=== PATIENT | male | born 1960 | race African-American/Black ===

== ENCOUNTER 2016-11-02 22:47 | Emergency (ER) | payer SELFPAY ==
[2016-11-02 22:53] VITALS: BMI 22.4
[2016-11-03] MEDS ORDERED: cloNIDine HCL 0.1 MG TABLET PO ONE (00:04)
[2016-11-03] MEDS ORDERED: KETOROLAC TROMETHAMINE 60 MG/2 ML VIAL IM ONE (00:07)
[2016-11-03] MEDS ORDERED: HYDROCHLOROTHIAZIDE 25 MG TABLET (FP) PO ONE (00:10)
[2016-11-03] MEDS ORDERED: OXYCODONE/APAP 5/325MG COMBO TABLET PO ONE (00:10)
--- NOTE | 2016-11-03 00:10 | PDOC ---
History of Present Illness - History of Present Illness Initial Comments: 11/03/16 00:35 Patient is a 55 year old male with significant medical hx of total knee replacements x 4 (most recent: right knee, 06/03/16), anxiety, HTN, spinal stenosis and migraines who is presenting to the ED for bilateral hip pain for the past week. The patient was recently diagnosed with degenerative arthritis to his hips bilaterally one week ago after receiving an x-ray. He complains of hip pain with radiation down his legs that is worse on the right side. The patient states it hurts with movement, positional change, and when he lies down. He also endorses headache and elevated blood pressure. The patient states that he does physical therapy twice a week for his knee surgeries and he was asked to take this week off for hip pain. The patient ambulates with a cane and a walker. Denies numbness, tingling, weakness, difficulty urinating, incontinence, or new focal neurological deficits. Orthopedic Surgeon: Dylan Steiner MD <Sully Madrid - Last Filed: 11/03/16 00:35> <Sally Hameed - Last Filed: 11/03/16 04:14> - General Chief Complaint: Pain, Acute Stated Complaint: PAIN Time Seen by Provider: 11/02/16 23:15 Past History <Sully Madrid - Last Filed: 11/03/16 00:35> - Past Medical History Anemia: No Asthma: No Cancer: No Cardiac Disorders: No CVA: No COPD: No CHF: No Dementia: No Diabetes: No GI Disorders: No Disorders: No HTN: Yes Hypercholesterolemia: No Kidney Stones: No Liver Disease: No Psychiatric Problems: Yes (anxiety) Suicide Attempt (Hx): No Seizures: No Thyroid Disease: No - Surgical History Abdominal Surgery: No Appendectomy: No Cardiac Surgery: No Cholecystectomy: No Lung Surgery: No Neurologic Surgery: Yes (Spinal Fusion X2) Orthopedic Surgery: Yes (spinal fusion last 9 years ago) - Reproductive History Testicular Surgery: No - Immunization History Immunization Up to Date: No - Psycho/Social/Smoking Cessation Hx Anxiety: Yes Suicidal Ideation: No Smoking Status: No Smoking History: Never smoked Years of Tobacco Use: 3 Have you smoked in the past 12 months: Yes Number of Cigarettes Smoked Daily: 2 Cigars Per Day: 1 'Breaking Loose' booklet given: 05/16/14 Hx Alcohol Use: No Drug/Substance Use Hx: No Substance Use Type: None Hx Substance Use Treatment: Yes (percocet and valium) <Sally Hameed - Last Filed: 11/03/16 04:14> - Past Medical History Allergies/Adverse Reactions: Allergies Allergy/AdvReac Type Severity Reaction Status Date / Time No Known Allergies Allergy Verified 11/02/16 22:50 Home Medications: Ambulatory Orders Amlodipine Bes/Olmesartan Med [Ruben 10-40 mg Tablet] 1 each PO DAILY 11/29/13 Diazepam [Valium -] 10 mg PO BID PRN #60 tablet 05/28/14 Propranolol HCl [Inderal LA -] 80 mg PO DAILY #60 capsule.er 05/28/14 Cyclobenzaprine HCl [Amrix] 15 mg PO DAILY 11/03/14 Quetiapine Fumarate "Xr" [Seroquel XR] 200 mg PO HS@2000 11/03/14 Tamsulosin HCl [Flomax] 0.4 mg PO DAILY 11/03/14 Review of Systems - Review of Systems Comments:: 11/03/16 00:35 CONSTITUTIONAL: Absent: fever, chills, diaphoresis, generalized weakness, malaise, loss of appetite HEENT: Absent: rhinorrhea, nasal congestion, throat pain, throat swelling, difficulty swallowing, mouth swelling, ear pain, eye pain, visual changes CARDIOVASCULAR: Present: high blood pressure Absent: chest pain, syncope, palpitations, irregular heart rate, lightheadedness , peripheral edema RESPIRATORY: Absent: cough, shortness of breath, dyspnea with exertion, orthopnea, wheezing, stridor, hemoptysis GASTROINTESTINAL: Absent: abdominal pain, abdominal distension, nausea, vomiting, diarrhea, constipation, melena, hematochezia GENITOURINARY: Absent: dysuria, frequency, urgency, hesitancy, hematuria, flank pain, genital pain MUSCULOSKELETAL: Present: bilateral hip pain Absent: myalgia, joint swelling SKIN: Absent: rash, itching, pallor HEMATOLOGIC/IMMUNOLOGIC: Absent: easy bleeding, easy bruising, lymphadenopathy, frequent infections ENDOCRINE: Absent: unexplained weight gain, unexplained weight loss, heat intolerance, cold intolerance NEUROLOGIC: Present: headache Absent: focal weakness or paresthesia, dizziness, unsteady gait, seizure, mental status changes, bladder or bowel incontinence. PSYCHIATRIC: Absent: anxiety, depression, suicidal or homicidal ideation, hallucinations <Sully Madrid - Last Filed: 11/03/16 00:35> *Physical Exam - Vital Signs Last Vital Signs Temp Pulse Resp BP Pulse Ox 98.4 F 66 18 161/123 99 11/02/16 22:50 11/02/16 22:50 11/02/16 22:50 11/02/16 22:50 11/02/16 22:50 - Physical Exam Comments: 11/03/16 00:36 GENERAL: Well-appearing, well-nourished. No apparent distress. HEENT: Normocephalic, atraumatic. PERRL, EOM intact. CARDIOVASCULAR: Normal S1, S2. Regular rate and rhythm. PULMONARY: Clear to auscultation bilaterally. ABDOMEN: Soft, non-distended, non-tender. EXTREMITIES: Normal ROM in upper extremities. Decreased ROM lower extremities due to pain. No gross deformities. SKIN: Warm, dry. No rash NEUROLOGICAL: No focal neurological deficits. <Sully Madrid - Last Filed: 11/03/16 00:35> - Vital Signs Last Vital Signs Temp Pulse Resp BP Pulse Ox 98.4 F 66 18 161/123 99 11/02/16 22:50 11/02/16 22:50 11/02/16 22:50 11/02/16 22:50 11/02/16 22:50 <Sally Hameed - Last Filed: 11/03/16 04:14> Medical Decision Making - Medical Decision Making 11/03/16 04:09 bp came down to 140/90 headache resolved pt will call his regular physician for pain meds <Sally Hameed - Last Filed: 11/03/16 04:14> *DC/Admit/Observation/Transfer - Attestations Scribe Attestion: 11/03/16 00:37 Documentation prepared by Sully Madrid, acting as biomedical scientist for Sally Hameed MD. <Sully Madrid - Last Filed: 11/03/16 00:35> <Sally Hameed - Last Filed: 11/03/16 04:14> Diagnosis at time of Disposition: High blood pressure Qualifiers: Hypertension type: essential hypertension Qualified Code(s): I10 - Essential ( primary) hypertension Chronic pain Qualifiers: Chronic pain type: chronic pain syndrome Qualified Code(s): G89.4 - Chronic pain syndrome - Discharge Dispostion Disposition: HOME Condition at time of disposition: Stable - Referrals Referrals: Jeni Aguirre MD [Primary Care Provider] - - Patient Instructions Additional Instructions: please see your regular physician this week
[2016-11-03] MEDS ORDERED: HYDROCHLOROTHIAZIDE 25 MG TABLET (FP) ONE (00:32)
[2016-11-03] MEDS ORDERED: OXYCODONE/APAP 5/325MG COMBO TABLET ONE (00:32)
[2016-11-03] MEDS ORDERED: cloNIDine HCL 0.1 MG TABLET ONE (00:33)
[2016-11-03] MEDS ORDERED: KETOROLAC TROMETHAMINE 60 MG/2 ML VIAL ONE (00:33)
[2016-11-03] MEDS ORDERED: LABETALOL HCL 100 MG TABLET (FP) PO ONE (02:11)
[2016-11-03] MEDS ORDERED: LABETALOL HCL 100 MG TABLET (FP) ONE (02:19)
[2016-11-03 04:10] VITALS: BP 148/93; PULSE 60; TEMP 98.2
== END 2016-11-03 04:26 | disposition home or self-care (01) ==
LOC: JER 22:47
PROC: 3E0233Z Introduction of Anti-inflammatory into Muscle, Percutaneous Approach (ICD-10-PCS; principal; 2016-11-02)
DX: I10 Essential (primary) hypertension (principal); M16.0 Bilateral primary osteoarthritis of hip; G89.4 Chronic pain syndrome; F41.9 Anxiety disorder, unspecified; G43.909 Migraine, unspecified, not intractable, without status migrainosus; M48.00 Spinal stenosis, site unspecified
CPT/HCPCS: 99282-25

== ENCOUNTER 2017-01-02 18:58 | Emergency (ER) | payer OTHER ==
[2017-01-02] MEDS ORDERED: METOCLOPRAMIDE HCL INJECTION 10 MG/2 ML VIAL IVPB ONE (20:17)
[2017-01-02] MEDS ORDERED: SODIUM CHLORIDE 0.9% 1000 ML INFUS.BAG IV ONE (20:17)
[2017-01-02 20:29] VITALS: PULSE 95; TEMP 98.2; BMI 35.2
[2017-01-02 20:37] LABS: MCH 27.7 pg (25.7-33.7); MCHC 33.1 g/dl (32.0-35.9); MEAN CELL VOLUME 83.8 fl (80-96); MEAN PLT VOLUME 10.7 fl (7.5-11.1); PLATELET COUNT 206 K/MM3 (134-434); WHITE BLOOD COUNT 5.4 K/mm3 (4.0-10.8)
[2017-01-02 20:42] LABS: ALBUMIN 3.8 g/dl (3.5-5.0); ALK PHOS 90 U/L (32-92); ANION GAP 8 (8-16); CALCIUM 9.4 mg/dl (8.4-10.2); CO2 26 mmol/L (22-28); CREATININE 1.1 mg/dl (0.6-1.3); GLUCOSE,RANDOM 99 mg/dl (74-106); SGOT/AST 14 U/L (10-42); SGPT/ALT 22 U/L (10-40); TOT PROT 6.6 g/dl (6.4-8.3)
--- NOTE | 2017-01-02 20:56 | PDOC ---
History of Present Illness - General History Source: Patient Exam Limitations: No Limitations - History of Present Illness Initial Comments: 01/02/17 20:58 The patient is a 56 year old male, with a significant past medical history of hypertension, anxiety, migraines, who presents to the emergency department with complaints of a headache for one month. He reports that the headache has gotten increasingly worse since Tuesday and is now constant. The patient states that his headache starts in his neck and radiates up to his head and jaw. He reports some associated light sensitivity and tingling in his fingers and arms. The patient states that he has had chronic knee pain status post 4 total knee replacements and he does see a pain management doctor. He has some weakness in his right leg resulting from his previous knee surgery. He also has neck pain following cervical spine surgery many years ago. He reports some nausea while present in the ED and a few episodes of vomiting yesterday The patient states that he has had these headache in the past but has never seen a Neurologist. He is unsure if he ever had imaging of his brain. He denies weakness or recent injury or trauma. He denies chest pain, shortness of breath, and dizziness. He denies fever, chills, diarrhea and constipation. Allergies: None Past surgical history: Total knee replacement, spinal fusion Social history:Previous tobacco use PCP: Dr. Jeni De Leon Orthopedic Surgeon: Dr. Dylan Steiner <Marina Mello - Last Filed: 01/02/17 20:58> - General History Source: Patient Exam Limitations: No Limitations <Judith Gary - Last Filed: 01/02/17 22:09> - General Chief Complaint: Blood Pressure Problem Stated Complaint: HIGH BLOOD PRESSURE Past History <Marina Mello - Last Filed: 01/02/17 20:58> - Past Medical History Anemia: No Asthma: No Cancer: No Cardiac Disorders: No CVA: No COPD: No CHF: No Dementia: No Diabetes: No GI Disorders: No Disorders: No HTN: Yes Hypercholesterolemia: No Kidney Stones: No Liver Disease: No Psychiatric Problems: Yes (anxiety) Suicide Attempt (Hx): No Seizures: No Thyroid Disease: No - Surgical History Abdominal Surgery: No Appendectomy: No Cardiac Surgery: No Cholecystectomy: No Lung Surgery: No Neurologic Surgery: Yes (Spinal Fusion X2) Orthopedic Surgery: Yes (spinal fusion last 9 years ago) - Reproductive History Testicular Surgery: No - Immunization History Immunization Up to Date: No - Psycho/Social/Smoking Cessation Hx Anxiety: Yes Suicidal Ideation: No Smoking Status: No Smoking History: Never smoked Years of Tobacco Use: 3 Have you smoked in the past 12 months: Yes Number of Cigarettes Smoked Daily: 2 Cigars Per Day: 1 Information on smoking cessation initiated: No 'Breaking Loose' booklet given: 05/16/14 Hx Alcohol Use: No Drug/Substance Use Hx: No Substance Use Type: None Hx Substance Use Treatment: Yes (percocet and valium) <Judith Gary - Last Filed: 01/02/17 22:09> - Past Medical History Allergies/Adverse Reactions: Allergies Allergy/AdvReac Type Severity Reaction Status Date / Time No Known Allergies Allergy Verified 11/02/16 22:50 Home Medications: Ambulatory Orders Amlodipine Besylate/Benazepril [Lotrel 5-40 mg Capsule] 1 each PO DAILY Diazepam [Valium] 10 mg PO BID 01/02/17 Morphine Sulfate 30 mg PO BID 01/02/17 Verapamil HCl [Calan Sr] 180 mg PO DAILY 01/02/17 Review of Systems - Review of Systems Able to Perform ROS?: Yes Comments:: 01/02/17 20:59 GENERAL/CONSTITUTIONAL: No fever or chills. No weakness. HEAD, EYES, EARS, NOSE AND THROAT: No change in vision. No ear pain or discharge. No sore throat. GASTROINTESTINAL: +Nausea, +Vomiting diarrhea or constipation. GENITOURINARY: No dysuria, frequency, or change in urination. CARDIOVASCULAR: No chest pain or shortness of breath. RESPIRATORY: No cough, wheezing, or hemoptysis. MUSCULOSKELETAL: +Knee pain, +Neck pain SKIN: No rash NEUROLOGIC: +Headache, +Sensitivity to light, +Tingling in fingers and arms vertigo, loss of consciousness, or change in strength/sensation. ENDOCRINE: No increased thirst. No abnormal weight change. HEMATOLOGIC/LYMPHATIC: No anemia, easy bleeding, or history of blood clots. ALLERGIC/IMMUNOLOGIC: No hives or skin allergy. <Marina Mello - Last Filed: 01/02/17 20:58> *Physical Exam - Vital Signs Last Vital Signs Temp Pulse Resp BP Pulse Ox 98.2 F 95 H 18 145/95 98 07/30/17 20:19 01/02/17 20:19 01/02/17 20:19 01/02/17 20:19 01/02/17 20:19 - Physical Exam Comments: 01/02/17 20:59 GENERAL: Awake, alert, and fully oriented, in no acute distress HEAD: No signs of trauma EYES: PERRLA, EOMI, sclera anicteric, conjunctiva clear ENT: Auricles normal inspection, nares patent, Moist mucosa NECK: Normal ROM, supple, no lymphadenopathy, JVD, or masses LUNGS: Breath sounds equal, clear to auscultation bilaterally. No wheezes, and no crackles HEART: Regular rate and rhythm, normal S1 and S2, no murmurs, rubs or gallops ABDOMEN: Soft, nontender, normoactive bowel sounds. No guarding, no rebound. No masses EXTREMITIES: Normal range of motion, no edema. No clubbing or cyanosis. No cords, erythema, or tenderness NEUROLOGICAL: 5/5 strength in upper extremities, 5/5 strength in lower left extremity, in the lower right extremity 4/5 strength (old). Sensation is intact throughout SKIN: Warm, Dry, normal turgor, no rashes or lesions noted. <Marina Mello - Last Filed: 01/02/17 20:58> - Vital Signs Last Vital Signs Temp Pulse Resp BP Pulse Ox 98.2 F 95 H 18 145/95 98 01/02/17 20:19 01/02/17 20:19 01/02/17 20:19 01/02/17 20:19 01/02/17 20:19 <Judith Gary - Last Filed: 01/02/17 22:09> Heart Score/ECG Review #1 General ECG Interpretation: Sinus Rhythm, Normal Rate (62), Normal Intervals, No acute ischemic changes <Judith Gary - Last Filed: 01/02/17 22:09> ED Treatment Course - LABORATORY CBC & Chemistry Diagram: 01/02/17 20:15 01/02/17 20:15 - ADDITIONAL ORDERS Additional order review: Laboratory Results 01/02/17 20:15 Sodium 140 Potassium 3.6 Chloride 106 Carbon Dioxide 26 Anion Gap 8 BUN 17 Creatinine 1.1 Creat Clearance w eGFR > 60 Random Glucose 99 Calcium 9.4 AST 14 ALT 22 Alkaline Phosphatase 90 Total Protein 6.6 Albumin 3.8 01/02/17 20:15 RBC 4.80 MCV 83.8 MCHC 33.1 RDW 15.0 MPV 10.7 Neutrophils % Y Lymphocytes % Y - Medications Given in the ED: ED Medications Discontinued Medications Generic Name Dose Route Start Last Admin Trade Name Nallely PRN Reason Stop Dose Admin Diphenhydramine HCl 25 mg 01/02/17 20:27 01/02/17 20:29 Benadryl Injection - IVPB 01/02/17 20:28 25 mg NOW ONE Administration Metoclopramide HCl 10 mg 01/02/17 20:17 01/02/17 20:26 Reglan Injection - IVPB 01/02/17 20:18 10 mg ONCE ONE Administration Sodium Chloride 1,000 ml 01/02/17 20:17 01/02/17 20:26 Normal Saline - IV 01/02/17 20:18 1,000 ml ONCE ONE Administration <Marina Mello - Last Filed: 01/02/17 20:58> - LABORATORY CBC & Chemistry Diagram: 01/02/17 20:15 01/02/17 20:15 - ADDITIONAL ORDERS Additional order review: Laboratory Results 01/02/17 20:15 Sodium 140 Potassium 3.6 Chloride 106 Carbon Dioxide 26 Anion Gap 8 BUN 17 Creatinine 1.1 Creat Clearance w eGFR > 60 Random Glucose 99 Calcium 9.4 AST 14 ALT 22 Alkaline Phosphatase 90 Total Protein 6.6 Albumin 3.8 - RADIOLOGY Radiology Studies Ordered: Category Date Time Status HEAD CT WITHOUT CONTRAST [CT] Stat CT Scan 01/02/17 20:26 Taken - Medications Given in the ED: ED Medications Discontinued Medications Generic Name Dose Route Start Last Admin Trade Name Nallely PRN Reason Stop Dose Admin Diphenhydramine HCl 25 mg 01/02/17 20:27 01/02/17 20:29 Benadryl Injection - IVPB 01/02/17 20:28 25 mg NOW ONE Administration Metoclopramide HCl 10 mg 01/02/17 20:17 01/02/17 20:26 Reglan Injection - IVPB 01/02/17 20:18 10 mg ONCE ONE Administration Sodium Chloride 1,000 ml 01/02/17 20:17 01/02/17 20:26 Normal Saline - IV 01/02/17 20:18 1,000 ml ONCE ONE Administration <Judith Gary - Last Filed: 01/02/17 22:09> Medical Decision Making - Medical Decision Making 01/02/17 20:51 56 yo M with c/o spinal surgery multiple knee surgeries and h/o migraines here wtih c/o one month of headache. severely worse and persistant since tuesday. takes medication for his knee which is prescribed by his pain management doctor which has not helped. also c/o neck pain radiating to head, and throat up to his eyes . no f/c no trauma. no weakness. does sometimes get paresthesia in his fingers which he has had for a while. has chronic right leg weakness followig his knee surgery. does have nausea, and vomiting yesterday. on exam awake alert lungs clear. hear rrr no mrg. abd soft NT skin warm and dry. nuero awake alert x 3 . strenth 5/5 bilat upper ext, left lower ext. right lower ext 4/5 ( old ) sensation intact throught. differential: pt states has not ihad imaging. will ct head r/o organic cuase. likley tension headache vs. migraine. plan reglan, ivf benadryl. toradol. consider valium po. reassess. labs r/o anemia, sx of infection and baseline renal function. 01/02/17 22:08 pt labs unremarkable. head ct normal. feeling improved with tylenol, toradol and reglan. given referral for nuerology and asked to follow up with pcp regarding bp meds, and pain management for further pain control. <Judith Gary - Last Filed: 01/02/17 22:09> *DC/Admit/Observation/Transfer - Attestations Scribe Attestion: 01/02/17 20:59 Documentation prepared by MAURICIO Matias, acting as medical fee clerk for Judith Gary MD. <Marina Mello - Last Filed: 01/02/17 20:58> <Judith Gary - Last Filed: 01/02/17 22:09> Diagnosis at time of Disposition: Head ache - Discharge Dispostion Condition at time of disposition: Good - Referrals Referrals: Jeni Aguirre MD [Primary Care Provider] - Khanh Perez MD [Staff Physician] - - Patient Instructions Printed Discharge Instructions: Migraine Headaches (Alternative Therapy), Migraine -- Adult Additional Instructions: you should follow up with a nuerologist for persistant headaches. in addition you should follow up with your pain management doctor. return for persistant vomiting, worsenign weakness, or any concerns. you can take ibuprofen 400 mg every 8 hours with food in addition to your pain managemnet regimen for persistant or recurrent symtpoms. your head CT Scan was normal.
[2017-01-02 20:58] LABS: BILIRUBIN,TOTAL 0.3 mg/dl (0.2-1.0)
[2017-01-02] MEDS ORDERED: KETOROLAC TROMETHAMINE 30 MG/1 ML VIAL IVPUSH ONE (21:18)
[2017-01-02] MEDS ORDERED: KETOROLAC TROMETHAMINE 30 MG/1 ML VIAL ONE (21:19)
[2017-01-02 21:37] LABS: PLATELET ESTIMATE ADEQUATE (NORMAL)
[2017-01-02 21:49] VITALS: BP 156/97
[2017-01-02] MEDS ORDERED: ACETAMINOPHEN INJECTION 100 ML IVPB ONE (22:00)
[2017-01-02] MEDS ORDERED: ACETAMINOPHEN 1000 MG/100 ML VIAL (NON FORMULARY) IVPB ONE (22:00)
--- NOTE | 2017-01-03 10:14 | EKG ---
Test Reason : Blood Pressure : / mmHG Vent. Rate : 062 BPM Atrial Rate : 062 BPM P-R Int : 174 ms QRS Dur : 098 ms QT Int : 456 ms P-R-T Axes : 061 013 013 degrees QTc Int : 462 ms SINUS RHYTHM NONSPECIFIC T WAVE ABNORMALITY LEFT VENTRICULAR HYPERTROPHY WHEN COMPARED WITH ECG OF 23-AUG-2014 09:41, NO SIGNIFICANT CHANGE WAS FOUND Confirmed by ERNESTO VILLANUEVA MD ([id number]) on 01/03/2017 10:13:39 AM Referred By: GRACIELA Confirmed By:ERNESTO VILLANUEVA MD
== END 2017-01-02 22:32 | disposition home or self-care (01) ==
LOC: FER 18:58
PROC: 3E033GC Introduction of Other Therapeutic Substance into Peripheral Vein, Percutaneous Approach (ICD-10-PCS; principal; 2017-01-02)
DX: G43.909 Migraine, unspecified, not intractable, without status migrainosus (principal); I10 Essential (primary) hypertension; F41.9 Anxiety disorder, unspecified
CPT/HCPCS: 36415; 70450-TC; 80053; 85025; 93005; 93010; 96374; 96375; 99282-25

== ENCOUNTER 2019-01-10 16:59 | Emergency (ER) | payer OTHER ==
[2019-01-10] MEDS ORDERED: KETOROLAC TROMETHAMINE 60 MG/2 ML VIAL IM ONE (17:05)
--- NOTE | 2019-01-10 17:05 | PDOC ---
Rapid Medical Evaluation Time Seen by Provider: 01/10/19 17:03 Medical Evaluation: Allergies Allergy/AdvReac Type Severity Reaction Status Date / Time No Known Allergies Allergy Verified 11/02/16 22:50 01/10/19 17:03 I have performed a brief in-person evaluation of this patient. The patient presents with a chief complaint of: right hip pain despite Percocet Pertinent physical exam findings: swelling to RLE from hip to foot. No bony tenderness. I have ordered the following: toradol The patient will proceed to the ED for further evaluation. Discharge Disposition - Diagnosis Right leg swelling - Referrals - Patient Instructions - Post Discharge Activity
[2019-01-10 17:06] VITALS: BP 114/70; PULSE 81; TEMP 98.5; BMI 35.8
[2019-01-10] MEDS ORDERED: KETOROLAC TROMETHAMINE 60 MG/2 ML VIAL ONE (17:18)
--- NOTE | 2019-01-10 17:50 | PDOC ---
History of Present Illness - General Chief Complaint: Chronic pain Stated Complaint: PAIN Time Seen by Provider: 01/10/19 17:03 History Source: Patient - History of Present Illness Initial Comments: 01/10/19 17:45 Chief complaint: Leg swelling Patient 58-year-old male with history of for knee replacements to the right knee , history of MRSA who states that his right leg has been swollen for the past 3 days. No fever, no recent travel, no history of DVT or PE, no chest pain or shortness of breath. Shouldn't is ambulatory with cane. Patient states last knee replacement was 2016 at [facility]. GENERAL/CONSTITUTIONAL: No fever, weakness. dizziness HEAD, EYES, EARS, NOSE AND THROAT: No change in vision. No ear pain or discharge. No sore throat. CARDIOVASCULAR: No chest pain RESPIRATORY: No shortness of breath or cough GASTROINTESTINAL: No pain, nausea, vomiting, diarrhea or constipation GENITOURINARY: No dysuria MUSCULOSKELETAL: No neck or back pain SKIN: No rash, + right leg swelling NEUROLOGIC: No headache, vertigo, loss of consciousness, or loss of sensation. GENERAL: The patient is awake, alert, and fully oriented, in no acute distress. HEAD: Normal with no signs of trauma. EYES: Pupils equal, round and reactive to light, sclera anicteric, conjunctiva clear. ENT: pharynx: no erythema, no exudate, uvula midline NECK: supple CHEST: clear, nontender, rr ABD: soft, nontender BACK: no tenderness or signs of injury EXTREMITIES: Right lower extremity with scar from knee replacement, no signs of infection, mild swelling to the lower leg, no erythema or tenderness, foot with minimal swelling, neurovascular intact. Rest of extremities, normal range of motion, no edema. NEUROLOGICAL: Normal speech, normal gait. SKIN: Warm, Dry Past History - Past Medical History Allergies/Adverse Reactions: Allergies Allergy/AdvReac Type Severity Reaction Status Date / Time No Known Allergies Allergy Verified 01/10/19 17:06 Home Medications: Ambulatory Orders Amlodipine Besylate/Benazepril [Lotrel 5-40 mg Capsule] 1 each PO DAILY Diazepam [Valium] 10 mg PO PRN 01/02/17 Verapamil HCl [Calan Sr] 180 mg PO DAILY 01/02/17 Hydrochlorothiazide [Hctz -] 12.5 mg PO DAILY 11/29/18 Anemia: No Asthma: No Cancer: No Cardiac Disorders: No CVA: No COPD: No CHF: No Dementia: No Diabetes: No GI Disorders: No Disorders: No HTN: Yes Hypercholesterolemia: No Kidney Stones: No Liver Disease: No Psychiatric Problems: Yes (anxiety) Seizures: No Thyroid Disease: No - Surgical History Abdominal Surgery: No Appendectomy: No Cardiac Surgery: No Cholecystectomy: No Lung Surgery: No Neurologic Surgery: Yes (Spinal Fusion X2) Orthopedic Surgery: Yes (spinal fusion last 9 years ago) - Reproductive History Testicular Surgery: No - Immunization History Immunization Up to Date: No - Suicide/Smoking/Psychosocial Hx Smoking Status: No Smoking History: Current some day smoker Years of Tobacco Use: 3 Have you smoked in the past 12 months: Yes Number of Cigarettes Smoked Daily: 2 Cigars Per Day: 1 Information on smoking cessation initiated: No 'Breaking Loose' booklet given: 05/16/14 Hx Alcohol Use: No Drug/Substance Use Hx: No Substance Use Type: None Hx Substance Use Treatment: Yes (percocet and valium) *Physical Exam - Vital Signs Last Vital Signs Temp Pulse Resp BP Pulse Ox 98.5 F 81 16 114/70 97 01/10/19 17:04 01/10/19 17:04 01/10/19 17:04 01/10/19 17:04 01/10/19 17:04 ED Treatment Course - RADIOLOGY Radiology Studies Ordered: Category Date Time Status DUPLEX VASCUL US-1 LEG [US] Stat Ultrasound 01/10/19 17:23 Taken - Medications Given in the ED: ED Medications Discontinued Medications Generic Name Dose Route Start Last Admin Trade Name Hadleyq PRN Reason Stop Dose Admin Ketorolac Tromethamine 60 mg 01/10/19 17:05 01/10/19 17:21 Toradol Injection - IM 01/10/19 17:06 60 mg ONCE ONE Administration Medical Decision Making - Medical Decision Making 01/10/19 17:50 58-year-old male with history of for knee replacements to the right knee, last one 2016, history of MRSA with 3 days of right leg swelling, no chest pain, shortness of breath, fever or signs of infection. Patient has mild swelling,. Patient is ambulatory. Will get ultrasound, otherwise patient has regular doctor and orthopedist to follow-up with for further evaluation Ultrasound is negative Discussed issues, findings, results, applicable medications and treatments and follow-up. All these were understood and all questions were answered 01/10/19 18:13 01/10/19 18:26 Hand written on patient's discharge information that he needs repeat ultrasound in 1 week if he still has swelling to fully exclude DVT and also recommended compression stockings/socks *DC/Admit/Observation/Transfer Diagnosis at time of Disposition: Right leg swelling - Discharge Dispostion Disposition: HOME - Referrals Referrals: Jeni Aguirre MD [Primary Care Provider] - - Patient Instructions Additional Instructions: Your ultrasound does not show a blood clot or a cyst.. It is very important for you to follow-up with your doctor/orthopedist for further evaluation. return to the ER if fever, chest pain, shortness of breath, leg becomes very swollen and painful. You can take Tylenol 650 mg every 4 hours or Motrin 600 mg every 6 hours for pain, make sure to elevate the leg. - Post Discharge Activity
== END 2019-01-10 18:24 | disposition home or self-care (01) ==
LOC: JERFT 16:59
PROC: 3E0233Z Introduction of Anti-inflammatory into Muscle, Percutaneous Approach (ICD-10-PCS; principal; 2019-01-10)
DX: R60.0 Localized edema (principal); Z96.651 Presence of right artificial knee joint
CPT/HCPCS: 93971-TC; 99282-25

== ENCOUNTER 2019-07-19 17:56 | Emergency (ER) | payer OTHER ==
[2019-07-19 18:11] VITALS: TEMP 98; BMI 36.6
--- NOTE | 2019-07-19 18:35 | PDOC ---
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 Notes that he got back to the [facility] from [place] 6 days ago, where he was staying for 2 months. Has had alpa blood and clots in the place of bowel movements for all six days, with one episode of coffee ground emesis two days ago. Notes that over the same period, he has felt like all food and fluids is being "caught" at around the mid-chest (around angle of [place]), and has had less PO intake as a result. Endorses chest pain 2/2 food getting caught, SOB, generalized weakness, midline abdominal pain, and chills. Smokes cigars, last 2 months ago. Social drinker, last drink 2 months ago. Past History - Past Medical History Allergies/Adverse Reactions: Allergies Allergy/AdvReac Type Severity Reaction Status Date / Time No Known Allergies Allergy Verified 07/19/19 18:13 Home Medications: Ambulatory Orders Amlodipine Besylate/Benazepril [Lotrel 5-40 mg Capsule] 1 each PO DAILY Diazepam [Valium] 10 mg PO PRN 01/02/17 Hydrochlorothiazide [Hctz -] 12.5 mg PO DAILY 11/29/18 Anemia: Yes (transfusions after surg) Asthma: No Cancer: No Cardiac Disorders: No CVA: No COPD: No CHF: No Dementia: No Diabetes: No GI Disorders: No Disorders: No HTN: Yes Hypercholesterolemia: No Kidney Stones: No Liver Disease: No Psychiatric Problems: Yes (anxiety) Seizures: No Thyroid Disease: No - Surgical History Abdominal Surgery: No Appendectomy: No Cardiac Surgery: No Cholecystectomy: No Lung Surgery: No Neurologic Surgery: Yes (Spinal Fusion X2) Orthopedic Surgery: Yes (spinal fusion last 9 years ago) - Reproductive History Testicular Surgery: No - Immunization History Immunization Up to Date: No - Psycho Social/Smoking Cessation Hx Smoking Status: No Smoking History: Never smoked Years of Tobacco Use: 3 Have you smoked in the past 12 months: Yes Number of Cigarettes Smoked Daily: 2 Cigars Per Day: 1 'Breaking Loose' booklet given: 05/16/14 Hx Alcohol Use: No Drug/Substance Use Hx: No Substance Use Type: None Hx Substance Use Treatment: Yes (percocet and valium) Review of Systems - Review of Systems Comments:: 07/19/19 19:35 GENERAL/CONSTITUTIONAL: endorses chills and generalized weakness. Denies diaphoresis, malaise, loss of appetite, weight change HEAD, EYES, EARS, NOSE AND THROAT: endorses difficulty with "food getting stuck in his chest". Denies rhinorrhea, nasal congestion, throat pain, mouth swelling , ear pain, eye pain, visual changes NEUROLOGIC: denies headache, focal weakness or paresthesias, dizziness, unsteady gait, seizure, mental status changes, bladder or bowel incontinence CARDIOVASCULAR: endorses chest pain 2/2 "food getting stuck". Denies syncope, palpitations, irregular heart rate, lightheadedness, peripheral edema RESPIRATORY: endorses shortness of breath. Denies cough, orthopnea, wheezing, stridor, hemoptysis GASTROINTESTINAL: endorses midline abdominal pain and bloating, nausea with 3 episodes of vomiting, including 1 episode of coffee ground emesis, and bright red blood per rectum. Denies, nausea, vomiting, constipation GENITOURINARY: denies dysuria, frequency, urgency, hesitancy, hematuria, flank pain, genital pain MUSCULOSKELETAL: denies myalgia, arthralgia, joint swelling, back pain, neck pain SKIN: denies rash, itching, pallor HEMATOLOGIC/IMMUNOLOGIC: denies easy bleeding, easy bruising, lymphadenopathy, frequent infections ENDOCRINE: denies unexplained weight gain, unexplained weight loss, heat intolerance, cold intolerance PSYCHIATRIC: denies anxiety, depression, suicidal or homicidal ideation, hallucinations. *Physical Exam - Vital Signs Last Vital Signs Temp Pulse Resp BP Pulse Ox 98 F 117 H 18 110/66 98 07/19/19 18:08 07/19/19 18:08 07/19/19 18:08 07/19/19 18:08 07/19/19 18:08 - Physical Exam 07/19/19 19:40 GENERAL: Awake, alert, and fully oriented, in no acute distress. HEAD: Normal with no signs of trauma. EYES: Pupils equal, round and reactive to light, extraocular movements intact, sclera anicteric, conjunctiva clear. No lid lag EARS, NOSE, THROAT: Ears normal, nares patent, oropharynx clear without exudates. NECK: Normal range of motion, supple without lymphadenopathy, JVD, or masses LUNGS: Breath sounds equal, clear to auscultation bilaterally. No wheezes, and no crackles. No accessory muscle use. HEART: Tachycardic, regular rhythm, normal S1 and S2 without murmur, rub or gallop. ABDOMEN: Soft, midline tenderness, non-distended, normoactive bowel sounds, negative guarding, negative rebound MUSCULOSKELETAL: Normal range of motion at all joints. No bony deformities or tenderness. No CVA tenderness. UPPER EXTREMITIES: 2+ pulses, warm, well-perfused. No cyanosis. No clubbing. Cap refill <2 seconds. No peripheral edema. LOWER EXTREMITIES: 2+ pulses, warm, well-perfused. No calf tenderness. No peripheral edema. Surgical scar on R knee. NEUROLOGICAL: Cranial nerves II-XII intact. Normal speech. Normal gait. PSYCHIATRIC: Cooperative. Good eye contact. Appropriate mood and affect. SKIN: Warm, dry, normal turgor, no rashes or lesions noted. ED Treatment Course - LABORATORY CBC & Chemistry Diagram: 07/19/19 22:10 07/19/19 19:00 Medical Decision Making - Medical Decision Making 07/19/19 19:40 Concern for brisk upper GI bleed vs lower GI bleed. - CBC, CMP - EKG, CXR, trop - lipase - coags - T+S X2 - stool occult - IVF - PPI, Zofran, Ofirmev - CTA abd/pelvis w+w/o contrast pending Cr - likely admit 07/19/19 19:44 EKG with normal sinus at 93 bpm, possible L atrial enlargment. LA 152, QRS 98, QTc 462 07/19/19 21:11 Cr 1.4 from baseline 0.9, ÁNGEL. Hgb stable, labs otherwise unremarkable. Stool occult negative. 07/19/19 22:25 Repeat CBC with Hgb of 11 from 13, however patient stable and received liter of fluid. CTA shows diverticulosis without diverticulitis. Will dc with close GI follow up, strict return precautions. Discharge - Discharge Information Problems reviewed: Yes Clinical Impression/Diagnosis: Rectal bleeding Condition: Stable Disposition: HOME - Admission No - Follow up/Referral Referrals: Jeni Aguirre MD [Primary Care Provider] - Soha Mathew MD [Staff Physician] - - Patient Discharge Instructions Patient Printed Discharge Instructions: DI for Rectal Bleeding Additional Instructions: You were seen with rectal bleeding. Your labs and imaging did not show signs of acute bleeding. However, it is very important that you follow with a GI doctor. A number is provided in the paperwork. Please follow up with your primary care doctor within one week. Return to the ED if you develop worsening rectal bleeding, chest pain, or shortness of breath. - Post Discharge Activity
[2019-07-19] MEDS ORDERED: SODIUM CHLORIDE 0.9% 1000 ML INFUS.BAG IV ONE (18:58)
[2019-07-19] MEDS ORDERED: ONDANSETRON 4 MG/2 ML VIAL IVPUSH ONE (18:59)
[2019-07-19] MEDS ORDERED: ACETAMINOPHEN 1000 MG/100 ML VIAL (NON FORMULARY) IVPB ONE (18:59)
[2019-07-19] MEDS ORDERED: PANTOPRAZOLE SODIUM 80 MG in SODIUM CHLORIDE 100 ML IVPB SCH (19:00)
[2019-07-19] MEDS ORDERED: ACETAMINOPHEN INJECTION 100 ML IVPB ONE (19:24)
[2019-07-19] MEDS ORDERED: PANTOPRAZOLE SODIUM 40 MG VIAL ONE (19:25)
[2019-07-19] MEDS ORDERED: ONDANSETRON 4 MG/2 ML VIAL ONE (19:25)
--- NOTE | 2019-07-19 19:33 | PDOC ---
Documentation entered by Jose Miguel Recinos SCRIBE, acting as scribe for Niesha Rosa DO. Niesha Rosa DO: This documentation has been prepared by the Jorje dawson Daniel, SCRIBE, under my direction and personally reviewed by me in its entirety. I confirm that the documentation accurately reflects all work, treatment, procedures, and medical decision making performed by me. Attending Attestation - Resident Resident Name: JacksonGriselda campoverde - ED Attending Attestation I have performed the following: I have examined & evaluated the patient, The case was reviewed & discussed with the resident, I agree w/resident's findings & plan, Exceptions are as noted - HPI HPI: 07/19/19 19:21 The patient is a 58 year old male with a past medical history of 4 TKRs of the right knee with complications of MRSA, HTN, spinal stenosis, migraines, and anxiety here today for evaluation of rectal bleeding. The patient reports that his rectal bleeding began 6 days ago and describes it as bright red with clots only on the first day. He states that he has to strain when he has a bowel movement and only sees blood. He also notes associated chills, night sweats, and 2 days of coffee ground emesis. Patient denies headache, lightheadedness. Denies fever. Denies chest pain, shortness of breath. Allergies: NKA PCP: Jeni Aguirre - Physicial Exam PE: 07/19/19 19:21 Constitutional: Awake, alert, oriented. No acute distress. Head: Normocephalic. Atraumatic Eyes: +pale conjunctivae. PERRL. EOMI. ENT: Mucous membranes are moist and intact. Posterior pharynx without exudates or erythema. Uvula midline. Neck: Supple. Full ROM. No lymphadenopathy. Cardiovascular: +tachycardic. Regular rhythm. S1, S2 regular. Distal pulses are 2+ and symmetric. Pulmonary/Chest: No evidence of respiratory distress. Clear to auscultation bilaterally No wheezing, rales or rhonchi. Abdominal: +tenderness from the epigastrum to the umbilicus. Soft and non- distended. No rebound, guarding or rigidity. No organomegaly. No palpable masses. Good bowel sounds. Back: No CVA tenderness. Musculoskeletal: No edema. No cyanosis. No clubbing. Full range of motion in all extremities. No calf tenderness. Radial/pedal pulses are intact and 2+ bilaterally Skin: Skin is warm and dry. No petechiae. No purpura. Neurological: Alert and oriented to person, place, and time. Cranial nerves II -XII are grossly intact. Normal speech. Strength is grossly symmetric. No sensory deficits. Psychiatric: Good eye contact. Normal interaction, affect and behavior. - Medical Decision Making 07/19/19 19:28 a/p: 58yo male with night sweats, upper abd pain, gi bleeding and feeling that food gets stuck when he swallows- solids and liquids -no fevers, no diarrhea -states every bowel movement has been brb -vomiting 2 days ago of coffee grounds -some etoh use socially, but not heavy -admits to cigar smoking -will send labs, type and screen -rectal per the resident -cta abd/pelvis -will start protonix, ivf -will monitor and reassess 07/19/19 20:06 cxr clear hgb 13 will dc protonix gtt at this time 07/19/19 21:45 pt with cr 1.4, ok to do ct with contrast 07/19/19 21:46 diverticulosis wihtout acute diverticulitis stool for heme neg 07/19/19 22:27 hgb stable repeat hgb 11.9 no active bleeding in the Er stable for dc to home and follow up with GI as outpt pt eating and drinking in the Er with any further complaints Heart Score/ECG Review - ECG Intrepretation Comment:: 07/19/19 19:32 sinus at 93, nl axis, nl interval, no acute st/t wave findings
[2019-07-19 19:36] LABS: BASO % 1.2 % (0-2.0); EOS % 1.4 % (0-4.5); HEMATOCRIT 40.9 % (35.4-49); HEMOGLOBIN 13.6 GM/dL (11.7-16.9); LYMPH % 28.5 % (8-40); MCHC 33.2 g/dl (32.0-35.9); MEAN CELL VOLUME 81.4 fl (80-96); MEAN PLT VOLUME 10.2 fl (7.5-11.1); MONO % 7.5 % (3.8-10.2); NEUT % 61.4 % (42.8-82.8); PLATELET COUNT 249 K/MM3 (134-434); RBC 5.03 M/mm3 (4.00-5.60); RDW 14.1 % (11.9-15.9); WHITE BLOOD COUNT 5.6 K/mm3 (4.0-10.0)
[2019-07-19 19:49] LABS: INR 1.07 (0.83-1.09); PROTHROMBIN TIME (PATIENT) 12.6 SEC (9.7-13.0)
[2019-07-19 19:51] LABS: ACTIVATED PTT 33.8 SECONDS (25.2-36.5)
[2019-07-19 19:54] LABS: MAGNESIUM 1.9 mg/dL (1.8-2.4)
[2019-07-19 20:03] LABS: ALBUMIN 3.7 g/dl (3.4-5.0); ALK PHOS 96 U/L (45-117); ANION GAP 7 MMOL/L (8-16); BILIRUBIN,TOTAL 0.1 mg/dL (0.2-1); BLOOD UREA NITROGEN 27.2 mg/dL (7-18); CALCIUM 9.7 mg/dL (8.5-10.1); CHLORIDE 104 mmol/L (98-107); CO2 27 mmol/L (21-32); CREATININE 1.4 mg/dL (0.55-1.3); GLUCOSE,RANDOM 86 mg/dL (74-106); POTASSIUM 3.7 mmol/L (3.5-5.1); SGOT/AST 7 U/L (15-37); SGPT/ALT 21 U/L (13-61); SODIUM 138 mmol/L (136-145); TOT PROT 7.3 g/dl (6.4-8.2)
[2019-07-19 22:21] LABS: EOS % 1.5 % (0-4.5); HEMATOCRIT 36.1 % (35.4-49); HEMOGLOBIN 11.9 GM/dL (11.7-16.9); MCH 26.7 pg (25.7-33.7); MCHC 33.1 g/dl (32.0-35.9); MEAN CELL VOLUME 80.6 fl (80-96); MEAN PLT VOLUME 9.5 fl (7.5-11.1); MONO % 9.4 % (3.8-10.2); NEUT % 53.1 % (42.8-82.8); PLATELET COUNT 220 K/MM3 (134-434); RBC 4.47 M/mm3 (4.00-5.60); RDW 14.1 % (11.9-15.9); WHITE BLOOD COUNT 5.7 K/mm3 (4.0-10.0)
[2019-07-19 23:25] VITALS: BP 120/76; PULSE 90
--- NOTE | 2019-07-20 15:10 | EKG ---
Test Reason : Blood Pressure : / mmHG Vent. Rate : 093 BPM Atrial Rate : 093 BPM P-R Int : 152 ms QRS Dur : 098 ms QT Int : 372 ms P-R-T Axes : 054 017 029 degrees QTc Int : 462 ms NORMAL SINUS RHYTHM POSSIBLE LEFT ATRIAL ENLARGEMENT NONSPECIFIC INTRAVENTRICULAR CONDUCTION DEFECT Confirmed by BRADFORD ALVARADO MD ([id number]) on 07/20/2019 3:10:08 PM Referred By: Confirmed By:BRADFORD ALVARADO MD
== END 2019-07-19 23:26 | disposition home or self-care (01) ==
LOC: JER 17:56
PROC: 3E033GC Introduction of Other Therapeutic Substance into Peripheral Vein, Percutaneous Approach (ICD-10-PCS; principal; 2019-07-19)
PROC: 3E033GC Introduction of Other Therapeutic Substance into Peripheral Vein, Percutaneous Approach (ICD-10-PCS; 2019-07-19)
PROC: 3E033NZ Introduction of Analgesics, Hypnotics, Sedatives into Peripheral Vein, Percutaneous Approach (ICD-10-PCS; 2019-07-19)
DX: K62.5 Hemorrhage of anus and rectum (principal); I10 Essential (primary) hypertension; F41.9 Anxiety disorder, unspecified; G43.909 Migraine, unspecified, not intractable, without status migrainosus; M48.00 Spinal stenosis, site unspecified; Z98.1 Arthrodesis status; Z96.651 Presence of right artificial knee joint; Z86.14 Personal history of Methicillin resistant Staphylococcus aureus infection; F17.290 Nicotine dependence, other tobacco product, uncomplicated
CPT/HCPCS: 36415; 71045-TC-FY; 74174-TC; 80053; 82272; 82550; 83690; 83735; 84484; 85025; 85610; 85730; 86850; 86900; 86901; 93005; 93010; 99285-25; J0131; J7030